=== PATIENT | female | born 1970 | race Caucasian/White ===

== ENCOUNTER 2017-05-21 11:00 | Inpatient (IN) | payer OTHER ==
[~2017-05-21] VITALS: Ht 157.5 cm; Wt 54.4 kg
[2017-05-21] MEDS ORDERED: COLON HERBAL C1 EACH PO (13:42)
[2017-05-21] MEDS ORDERED: PANADOL EXTRA500 MG PO (13:42)
[2017-05-30] MEDS ORDERED: DICLOFENAC POTA50 MG PO (10:09)
[2017-05-30] MEDS ORDERED: TANDEM PLUS CA1 EACH PO (10:09)
[2017-05-30] MEDS ORDERED: PERCOCET 5-3251 EACH PO (10:11)
== END 2017-05-30 11:28 | DRG 743 ==
LOC: O/R 05-28 05:36 → OB/GYN 05-28 05:36 → SURH 05-28 07:00 → OB/GYN 05-28 12:21
PROVIDERS: Obstetrics & Gynecology
PROC: 0USG0ZZ Reposition Vagina, Open Approach (ICD-10-PCS; 2017-05-28)
PROC: 0UT97ZZ Resection of Uterus, Via Natural or Artificial Opening (ICD-10-PCS; principal; 2017-05-28 07:00)
DX: N85.01 Benign endometrial hyperplasia (principal); D25.1 Intramural leiomyoma of uterus; N72 Inflammatory disease of cervix uteri; D25.2 Subserosal leiomyoma of uterus